=== PATIENT | female | born 1990 | race African-American/Black ===

== ENCOUNTER 2019-01-30 06:59 | Emergency (ER) | payer OTHER ==
[2019-01-30 07:04] VITALS: BP 135/78; PULSE 88; TEMP 98.2; BMI 26.2
[2019-01-30] MEDS ORDERED: ALBUTEROL SO4 2.5/IPRATROPIUM 0.5 INH SOL 3 ML VIAL.NEB. NEB ONE ×2 (07:43→07:47)
[2019-01-30] MEDS ORDERED: DEXAMETHASONE 4 MG TABLET (FP) PO ONE (07:44)
[2019-01-30] MEDS ORDERED: DEXAMETHASONE SOD PHOSPHATE 10 MG/1 ML VIAL ONE (07:47)
--- NOTE | 2019-01-30 08:01 | PDOC ---
History of Present Illness - General History Source: Patient Exam Limitations: Clinical Condition - History of Present Illness Initial Comments: 01/30/19 08:02 Patient with past medical history of asthma presented with complaint of persistent cough, wheezing and shortness of breath which has not been improving with rescue inhaler. Patient was seen 4 days ago for same symptoms and discharged home on prednisone p.o., Ventolin and Z-Juan José antibiotics but reports symptoms persist. Denies fever, chills. Reports cough is nonproductive. Patient requesting checks x-ray to make sure she does not have pneumonia. Denies recent travel or sick contact Is this a multiple visit Asthma Patient?: No Timing/Duration: reports: intermittent Associated Symptoms: reports: cough, muscle aches, shortness of breath <Yahir Kraft - Last Filed: 01/30/19 09:19> <Herve Chan - Last Filed: 01/30/19 13:56> - General Chief Complaint: Respiratory Stated Complaint: DIFFICULTY BREATHING Time Seen by Provider: 01/30/19 07:23 Past History - Past Medical History COPD: No - Psycho Social/Smoking Cessation Hx Smoking History: Current every day smoker Number of Cigarettes Smoked Daily: 3 Information on smoking cessation initiated: No Hx Alcohol Use: No Drug/Substance Use Hx: No <Yahir Kraft - Last Filed: 01/30/19 09:19> <Herve Chan - Last Filed: 01/30/19 13:56> - Past Medical History Allergies/Adverse Reactions: Allergies Allergy/AdvReac Type Severity Reaction Status Date / Time No Known Allergies Allergy Verified 01/30/19 07:04 Home Medications: Ambulatory Orders Albuterol 2.5/Ipratropium 0.5 [Duoneb -] 1 neb IH QID PRN #1 vial.neb. 01/30/19 Benzonatate [Tessalon Pearls -] 100 mg PO Q8H PRN #20 capsule 01/30/19 Fluticasone Propionate [Flovent Hfa] 44 mcg IH BID #1 inh 01/30/19 Montelukast Na [Singulair -] 10 mg PO DAILY #10 tablet 01/30/19 Nebulizer and Compressor [Portable Nebulizer System] 1 each MC Q6H PRN #1 each 01/30/19 Review of Systems - Review of Systems Able to Perform ROS?: Yes Is the patient limited [place] Citizen proficient: No Constitutional: Yes: Malaise. No: Chills, Fever HEENTM: Yes: Symptoms Reported, See HPI, Nose Congestion. No: Eye Pain, Blurred Vision, Tearing, Recent change in vision, Double Vision, Cataracts, Ear Pain, Ocular Prothesis, Ear Discharge, Nose Pain, Tinnitus, Nose Bleeding, Hearing Loss, Throat Pain, Throat Swelling, Mouth Pain, Dental Problems, Difficulty Swallowing, Mouth Swelling, Other Respiratory: Yes: Symptoms reported, See HPI, Cough, Shortness of Breath, Wheezing. No: Orthopnea, SOB with Exertion, SOB at Rest, Stridor, Productive cough, Hemoptysis, Other Cardiac (ROS): Yes: Symptoms Reported, See HPI, Chest Pain (mid-sternal chest discomfort from coughing). No: Edema, Irregular Heart Rate, Lightheadedness, Palpitations, Syncope, Chest Tightness, Other ABD/GI: No: Nausea, Vomiting Musculoskeletal: No: Symptoms Reported Integumentary: No: Symptoms Reported Neurological: No: Symptoms reported, Headache, Weakness, Dizziness All Other Systems: Reviewed and Negative <SwapnilYahir Byrd - Last Filed: 01/30/19 09:19> *Physical Exam - Vital Signs Last Vital Signs Temp Pulse Resp BP Pulse Ox 98.2 F 88 18 135/78 97 01/30/19 07:02 01/30/19 07:02 01/30/19 07:02 01/30/19 07:02 01/30/19 07:02 - Physical Exam Comments: 01/30/19 08:01 GENERAL: Well developed, well nourished. Awake and alert in mild acute distress. HEENT: Normocephalic, atraumatic. PERRLA, EOMI. No conjunctival pallor. Sclera are non-icteric. Moist mucous membranes. Oropharynx is clear. NECK: Supple. Full ROM. CARDIOVASCULAR: Regular rate and rhythm. No murmurs, rubs, or gallops. Distal pulses are 2+ and symmetric. PULMONARY: Mild expiratory wheezing lung bases. No rhonchi or rales. ABDOMINAL: Soft. Non-tender. Non-distended. No rebound or guarding. No organomegaly. Normoactive bowel sounds. MUSCULOSKELETAL Normal range of motion at all joints. SKIN: Warm and dry. Normal capillary refill. No rashes. No cyanosis. NEUROLOGICAL: Alert, awake, appropriate. Gait is normal without ataxia. PSYCHIATRIC: Cooperative. Good eye contact. Appropriate mood General Appearance: Yes: Nourished, Appropriately Dressed, Mild Distress <Yahir Kraft - Last Filed: 01/30/19 09:19> - Vital Signs Last Vital Signs Temp Pulse Resp BP Pulse Ox 98.2 F 88 18 135/78 98 01/30/19 07:02 01/30/19 07:02 01/30/19 07:02 01/30/19 07:02 01/30/19 09:01 <Herve Chan - Last Filed: 01/30/19 13:56> ED Treatment Course - Medications Given in the ED: ED Medications Discontinued Medications Generic Name Dose Route Start Last Admin Trade Name Freq PRN Reason Stop Dose Admin Albuterol/Ipratropium 1 amp 01/30/19 07:43 01/30/19 07:54 Duoneb - NEB 01/30/19 07:44 1 amp ONCE ONE Administration Dexamethasone 10 mg 01/30/19 07:44 01/30/19 07:54 Decadron - PO 01/30/19 07:45 10 mg ONCE ONE Administration <Yahir Kraft - Last Filed: 01/30/19 09:19> - RADIOLOGY Radiology Studies Ordered: Category Date Time Status CHEST PA & LAT [RAD] Stat Radiology 01/30/19 07:41 Completed - Medications Given in the ED: ED Medications Discontinued Medications Generic Name Dose Route Start Last Admin Trade Name Freq PRN Reason Stop Dose Admin Albuterol/Ipratropium 1 amp 01/30/19 07:43 01/30/19 07:54 Duoneb - NEB 01/30/19 07:44 1 amp ONCE ONE Administration Dexamethasone 10 mg 01/30/19 07:44 01/30/19 07:54 Decadron - PO 01/30/19 07:45 10 mg ONCE ONE Administration <Herve Chan - Last Filed: 01/30/19 13:56> Medical Decision Making - Medical Decision Making 01/30/19 08:03 Patient with past medical history of asthma presented with complaint of asthma exacerbation symptoms which has been persistent for a few days and not improving with medication.. Exam significant for mild expiratory wheezing lung bases with mild distress. Checks x-ray ordered to rule out chest pathology. DuoNeb with Atrovent and ipratropium bromide ordered for wheezing. Decadron 10 mg p.o. ordered for bronchospasm. Respiratory therapy requests ordered and returned case inspector request placed due to recurrent visit for asthma 01/30/19 08:40 Chest x-ray unremarkable. Patient seen by respiratory therapist and stable for discharge on Flovent inhaled corticosteroid and continue home Ventolin rescue inhaler. Prescription for Tessalon Perles as needed ordered for cough and Singulair antihistamine to help with bronchospasm. Referral given to charge preparation technician for follow-up 01/30/19 08:41 Patient reported improvement in wheezing and shortness of breath after DuoNeb and p.o. Decadron treatment with improvement in wheezing 01/30/19 09:00 Patient asymptomatic now and stable for discharge <Yahir Kraft - Last Filed: 01/30/19 09:19> - Medical Decision Making 01/30/19 13:56 I reviewed the case of the mid-level practitioner and was available for consultation while in the emergency department <Herve Chan - Last Filed: 01/30/19 13:56> Discharge - Discharge Information Problems reviewed: Yes - Admission No <Yahir Kraft - Last Filed: 01/30/19 09:19> <Herve Chan - Last Filed: 01/30/19 13:56> - Discharge Information Clinical Impression/Diagnosis: Cough in adult Acute asthma exacerbation Qualifiers: Asthma severity: moderate Asthma persistence: persistent Qualified Code(s): J45.41 - Moderate persistent asthma with (acute) exacerbation Condition: Stable Disposition: HOME - Additional Discharge Information Prescriptions: Albuterol 2.5/Ipratropium 0.5 [Duoneb -] 1 neb IH QID PRN #1 vial.neb. PRN Reason: Asthma Benzonatate [Tessalon Pearls -] 100 mg PO Q8H PRN #20 capsule PRN Reason: Cough Fluticasone Propionate [Flovent Hfa] 44 mcg IH BID #1 inh Montelukast Na [Singulair -] 10 mg PO DAILY #10 tablet Nebulizer and Compressor [Portable Nebulizer System] 1 each MC Q6H PRN #1 each PRN Reason: Asthma - Follow up/Referral Referrals: Manpreet Armstrong MD [Staff Physician] - - Patient Discharge Instructions Patient Printed Discharge Instructions: DI for Asthma -- Adult Additional Instructions: Take medications as prescribed. Follow-up with referred charge preparation technician Dr. Armstrong as soon as possible for Asthma management - Post Discharge Activity Work/Back to School Note: Parent(s) Back to Work Note
== END 2019-01-30 10:21 | disposition home or self-care (01) ==
LOC: JER 06:59
PROC: 3E0F7GC Introduction of Other Therapeutic Substance into Respiratory Tract, Via Natural or Artificial Opening (ICD-10-PCS; principal; 2019-01-30)
DX: J45.41 Moderate persistent asthma with (acute) exacerbation (principal); F17.210 Nicotine dependence, cigarettes, uncomplicated
CPT/HCPCS: 71046-TC-FY; 94640; 94664; 99281-25